=== PATIENT | female | born 1985 | race African-American/Black ===

== ENCOUNTER 2016-10-19 18:48 | Emergency (ER) | payer OTHER ==
[~2016-10-19] VITALS: Ht 165.1 cm; Wt 73.2 kg
[2016-10-19] MEDS ORDERED: ANUSOL HC,ANUCO25 MG PR (22:51)
[2016-10-19] MEDS ORDERED: NORCO 5/3251 TABLET PO (22:51)
[2016-10-19] MEDS ORDERED: MIRALAX255 GM PO (22:58)
[2016-10-19 23:16] VITALS: BP 100/60
[2016-10-24] MEDS ORDERED: ALEVE220 MG PO (16:11)
[2016-10-24] MEDS ORDERED: ORTHO TRI-CY1 TABLE1 PO (16:11)
== END 2016-10-19 23:19 | disposition home or self-care (01) ==
LOC: EME 18:48
PROC: 069Y3ZZ Drainage of Lower Vein, Percutaneous Approach (ICD-10-PCS; principal; 2016-10-19)
DX: K64.5 Perianal venous thrombosis (principal)
CPT/HCPCS: 99281; 99284; J3010

== ENCOUNTER 2016-10-25 12:26 | Day surgery (SDC) | payer OTHER ==
[~2016-10-25] VITALS: Ht 165.1 cm; Wt 72.6 kg
[~2016-10-25 12:26] MED LIST: ALEVE220 MG PO; ANUSOL HC,ANUCO25 MG PR; MIRALAX255 GM PO; NORCO 5/3251 TABLET PO; ORTHO TRI-CY1 TABLE1 PO
[2016-10-25 13:05] VITALS: BP 106/57
[2016-10-25] MEDS ORDERED: COLACE100 MG PO (15:40)
[2016-10-25] MEDS ORDERED: ANECREAM30 GM TP (15:40)
[2016-10-25] MEDS ORDERED: PERCOCET 5/31 TABLET PO (15:40)
[2016-10-25 21:28] VITALS: BP 117/77
[2016-10-25 23:17] VITALS: BP 111/61
[2016-10-26 03:17] VITALS: BP 131/74
[2016-10-26 08:15] VITALS: BP 110/64
[2016-10-26 12:15] VITALS: BP 118/66
== END 2016-10-26 17:30 | disposition home or self-care (01) ==
LOC: SDC 12:26 → 2SOUTH 17:33 → 2EAST 21:06
PROC: 06BY0ZC Excision of Hemorrhoidal Plexus, Open Approach (ICD-10-PCS; principal; 2016-10-25)
DX: K64.5 Perianal venous thrombosis (principal); R00.1 Bradycardia, unspecified; Z79.52 Long term (current) use of systemic steroids; Z80.3 Family history of malignant neoplasm of breast; Z83.2 Family history of diseases of the blood and blood-forming organs and certain disorders involving the immune mechanism; F17.210 Nicotine dependence, cigarettes, uncomplicated
CPT/HCPCS: 88304; 93005; G0378; J0330; J1100; J1170; J1200; J1885; J2175; J2250; J2405; J3010; J7120; S0030